=== PATIENT | male | born 1980 | race Caucasian/White ===

== ENCOUNTER 2020-06-11 17:34 | Emergency (ER) | payer BC ==
[2020-06-11] MEDS ORDERED: Diphtheria,Pertussis(Acell),Tetanus Vaccine 0.5 ML Syringe IM ONE (18:04)
--- NOTE | 2020-06-11 18:40 | CR ---
INDICATION: Laceration thumb, hand TECHNIQUE: Hand radiograph 4 views right COMPARISON: None FINDINGS: Bone: No acute fractures or aggressive bone lesions are identified. Joint: The carpal and metacarpal-phalangeal joints are unremarkable in appearance. The interphalangeal joints are normal in appearance. Soft tissue: Unremarkable. No radiopaque foreign bodies are seen. IMPRESSION: 1. No acute osseous injuries or abnormalities are noted. Dictated by: Andrews Nash MD @ 06/11/2020 18:40:06 (Electronically Signed)
--- NOTE | 2020-06-11 19:56 | EDM.PDOC ---
ED HPI GENERAL MEDICAL PROBLEM - General Chief Complaint: Upper Extremity Injury/Pain Stated Complaint: RIGHT HAND LACERATION Time Seen by Provider: 06/11/20 17:44 Source of Information: Reports: Patient History Limitations: Reports: No Limitations - History of Present Illness INITIAL COMMENTS - FREE TEXT/NARRATIVE: HISTORY AND PHYSICAL: History of present illness: Patient is a 39-year-old male who presents to the ED today with concern of right hand laceration that occurred just prior to travel to the ED. Patient states that he was up on a ladder in a tree and was cutting down branches. Patient states that a friend on the ground was stringing up a chain saw. Patient states that he had grabbed the chainsaw and turned it on and it had slipped out of his hand. Patient states as it was falling it clipped the top of his hand and then fell to the ground. Patient states he applied pressure to the area immediately and came to the emergency room. Patient states he is not up-to-date on tetanus. Denies any other symptoms or concerns. Patient denies fever, chills, chest pain, shortness of breath, or cough. Denies headache, neck stiff ness, change in vision, syncope, or near syncope. Denies nausea, vomiting, abdominal pain, diarrhea, constipation, or dysuria. Has not noted any blood in urine or stool. Patient has been eating and drinking appropriately. Review of systems: As per history of present illness and below otherwise all systems reviewed and negative. Past medical history: As per history of present illness and as reviewed below otherwise noncontribu tory. Surgical history: As per history of present illness and as reviewed below otherwise noncontributory. Social history: See social history for further information Family history: As per history of present illness and as reviewed below otherwise noncontributory. Physical exam: General: Patient is alert, oriented, and in no acute distress. Patient sitting comfortably on exam table. HEENT: Atraumatic, normocephalic, pupils equal and reactive bilaterally, negative for conjunctival pallor or scleral icterus, mucous membranes moist, TMs normal bilaterally, throat clear, neck supple, nontender, trachea midline. No drooling or trismus noted. No meningeal signs. No hot potato voice noted. Lungs: Clear to auscultation, breath sounds equal bilaterally, chest nontender. Heart: S1S2, regular rate and rhythm without overt murmur Abdomen: Soft, nondistended, nontender. Negative for masses or hepatosplenomegaly. Negative for costovertebral tenderness. Pelvis: Stable nontender. Genitourinary: Deferred. Rectal: Deferred. Skin: Intact, warm, dry. No lesions or rashes noted. Extremities: There is a 5.5 laceration to the muscle but does not involve the muscle, bone, or tendon of the right lateral dorsal of the hand with hemostasis. There is another 4cm subcutaneous laceration of the right proximal dorsal 1st digit with mild trickling of blood. Patient has full range of motion of all dig its of the right upper extremity without deficit. Radial pulses grossly intact of the right upper extremity with capillary refill less than 2 seconds. Otherwise, atraumatic, negative for cords or calf pain. Neurovascular unremarkable. Neuro: Awake, alert, oriented. Cranial nerves II through XII unremarkable. Cerebellum unremarkable. Motor and sensory unremarkable throughout. Exam nonfocal. Notes: Signs and symptoms that would prompt return to the ED thoroughly discussed with patient. Discussed importance for follow-up with a primary care provider. Voices understanding and is agreeable to plan of care. Denies any further questions or concerns at this time. Diagnostics: Hand XR Therapeutics: tdap, sutures, lidocaine, sterile dressing placed by nursing staff Prescription: None Impression: Hand laceration, right Thumb laceration, right, 1st digit Plan: 1. Keep the area clean and dry. Continue to monitor for signs of infection as discussed. Sutures to be removed in 7-10 days. 2. Tylenol and/or ibuprofen as directed and as needed for pain management and discomfort. 3. Please follow-up with your primary care provider as discussed. Return to the ED as needed and as discussed. Definitive disposition and diagnosis as appropriate pending reevaluation and review of above. Right Hand Pain Score (Numeric/FACES): 5 - Related Data Allergies Allergy/AdvReac Type Severity Reaction Status Date / Time No Known Allergies Allergy Verified 06/11/20 17:45 Home Meds: Home Meds Dextroamphetamine/Amphetamine [Adderall] 30 mg PO DAILY 06/11/20 [History] Past Medical History Psychiatric History: Reports: ADHD Social & Family History - Family History Family Medical History: No Pertinent Family History - Tobacco Use Tobacco Use Status *Q: Former Tobacco User Used Tobacco, but Quit: Yes Month/Year Tobacco Last Used: 2014 - Recreational Drug Use Recreational Drug Use: No Review of Systems - Review of Systems Review Of Systems: Comprehensive ROS is negative, except as noted in HPI. ED EXAM, GENERAL - Physical Exam Exam: See Below (see dictation) ED TRAUMA EXTREMITY PROCEDURES - Laceration/Wound Repair Right Lateral Dorsal Hand Lac/Wound Length In cm: 5.5 Appearance: Muscle, Irregular, Clean Distal NVT: Neuro & Vascular Intact, No Tendon Injury Anesthetic Type: Local Local Anesthesia - Lidocaine (Xylocaine): 1% Plain Local Anesthetic Volume: Other (10cc) Skin Prep: Chlorhexidine (Hibiciens), Providone-Iodine (Betadine), Saline Saline Irrigation (cc's): 300 Exploration/Debridement/Repair: Wound Explored, In a Bloodless Field, Explored to Base, No Foreign Material Found, Wound Margins Revised, Multiple Flaps Aligned Closed With: Sutures Suture Size: 4-0 # of Sutures: 8 Suture Type: Silk, Interrupted Drain Placement: No Sterile Dressing Applied: Nurse Tetanus Status Addressed: Yes Complications: No Right Proximal Dorsal Digit - 1st (Thumb) Lac/Wound Length In cm: 4 Appearance: Subcutaneous, Irregular, Clean Distal NVT: Neuro & Vascular Intact, No Tendon Injury Anesthetic Type: Local Local Anesthesia - Lidocaine (Xylocaine): 1% Plain Local Anesthetic Volume: Other (10cc) Skin Prep: Chlorhexidine (Hibiciens), Providone-Iodine (Betadine), Saline Saline Irrigation (cc's): 300 Exploration/Debridement/Repair: Wound Explored, In a Bloodless Field, Explored to Base, No Foreign Material Found, Wound Margins Revised Closed With: Sutures Suture Size: 4-0 # of Sutures: 6 Suture Type: Silk, Interrupted Drain Placement: No Sterile Dressing Applied: Nurse Tetanus Status Addressed: Yes Complications: No Course - Vital Signs Last Recorded V/S: Last Vital Signs Temp 98 F 06/11/20 17:41 Pulse 81 06/11/20 20:00 Resp 17 06/11/20 20:00 BP 120/66 06/11/20 20:00 Pulse Ox 98 06/11/20 20:00 - Orders/Labs/Meds Meds: Medications Discontinued Medications Generic Name Dose Route Start Last Admin Trade Name Freq PRN Reason Stop Dose Admin Diphtheria/Tetanus/Acell Pertussis 0.5 ml 06/11/20 18:04 06/11/20 18:19 Adacel IM 06/11/20 18:05 0.5 ml .ONCE ONE Administration Lidocaine HCl 10 ml 06/11/20 18:04 06/11/20 18:19 Xylocaine-Mpf 1% INJECT 06/11/20 18:05 10 ml ONETIME ONE Administration Lidocaine HCl 10 ml 06/11/20 18:05 06/11/20 18:19 Xylocaine-Mpf 1% INJECT 06/11/20 18:06 10 ml ONETIME ONE Administration Departure - Departure Time of Disposition: 19:56 Disposition: Home, Self-Care 01 Clinical Impression: Hand laceration Qualifiers: Encounter type: initial encounter Foreign body presence: without foreign body Laterality: right Qualified Code(s): S61.411A - Laceration without foreign body of right hand, initial encounter Thumb laceration Qualifiers: Encounter type: initial encounter Damage to nail status: without damage Foreign body presence: without foreign body Laterality: right Qualified Code(s): S61.011A - Laceration without foreign body of right thumb without damage to nail, initial encounter - Discharge Information Instructions: Laceration Care, Adult, [id number] Referrals: Elizabeth Vera, DIRECT RESPONSE CONSULTANT [Primary Care Provider] - Forms: ED Department Discharge Additional Instructions: The following information is given to patients seen in the emergency department who are being discharged to home. This information is to outline your options for follow-up care. We provide all patients seen in our emergency department with a follow-up referral. The need for follow-up, as well as the timing and circumstances, are variable depending upon the specifics of your emergency department visit. If you don't have a primary care physician on staff, we will provide you with a referral. We always advise you to contact your personal physician following an emergency department visit to inform them of the circumstance of the visit and for follow-up with them and/or the need for any referrals to a consulting specialist. The emergency department will also refer you to a specialist when appropriate. This referral assures that you have the opportunity for follow-up care with a specialist. All of these measure are taken in an effort to provide you with optimal care, which includes your follow-up. Under all circumstances we always encourage you to contact your private physician who remains a resource for coordinating your care. When calling for follow-up care, please make the office aware that this follow-up is from your recent emergency room visit. If for any reason you are refused follow-up, please contact the [facility] Emergency Department at and asked to speak to the emergency department charge nurse. [facility] [address] [place] [address] [facility] [address] [place] [id number] 1. Keep the area clean and dry. Continue to monitor for signs of infection as discussed. Sutures to be removed in 7-10 days. 2. Tylenol and/or ibuprofen as directed and as needed for pain management and discomfort. 3. Please follow-up with your primary care provider as discussed. Return to the ED as needed and as discussed. Sepsis Event Note (ED) - Evaluation Sepsis Screening Result: No Definite Risk - Focused Exam Vital Signs: Vital Signs Temp Pulse Resp BP Pulse Ox 06/11/20 20:00 81 17 120/66 98 06/11/20 18:23 86 20 147/81 H 95 06/11/20 17:41 98 F 96 18 144/58 H 96
== END 2020-06-11 20:17 | disposition home or self-care (01) ==
LOC: MW.ED 17:34
DX: S61.011A Laceration without foreign body of right thumb without damage to nail, initial encounter (principal); S61.411A Laceration without foreign body of right hand, initial encounter; Z87.891 Personal history of nicotine dependence; Z23 Encounter for immunization; F90.9 Attention-deficit hyperactivity disorder, unspecified type; Z79.899 Other long term (current) drug therapy; W29.3XXA Contact with powered garden and outdoor hand tools and machinery, initial encounter
CPT/HCPCS: 12004; 73130; 90471; 90715; 99283; J2001

== ENCOUNTER 2023-09-11 17:05 | Emergency (ER) | payer BC | END 2023-09-11 20:34 | disposition home or self-care (01) | LOC: MW.ED 17:05 | DX: S39.012A Strain of muscle, fascia and tendon of lower back, initial encounter (principal); Q76.49 Other congenital malformations of spine, not associated with scoliosis; Z79.899 Other long term (current) drug therapy; X50.0XXA Overexertion from strenuous movement or load, initial encounter | CPT/HCPCS: 72131; 96372; 99283; J3360 ==

== ENCOUNTER 2024-05-22 00:10 | Emergency (ER) | payer BC ==
[2024-05-22] MEDS: Acetaminophen 500 MG Tab PO ONE (04:49)
[2024-05-22] MEDS: Lidocaine 4% 1 each Patch TOP ONE (04:50)
[2024-05-22] MEDS: Ketorolac 30 MG/ML SDV IM ONE (04:50)
[2024-05-22] MEDS: Dexamethasone 4 MG/ML SDV IM ONE (04:50)
[2024-05-22] MEDS: Orphenadrine 60 MG/2 ML Inj IM ONE (05:45)
[2024-05-22 06:42] LABS: APPEARANCE,URINE CLEAR; BILIRUBIN,URINE NEGATIVE (NEGATIVE); COLOR,URINE YELLOW; GLUCOSE,URINE NEGATIVE (NEGATIVE); KETONES,URINE NEGATIVE (NEGATIVE); LEUKOCYTE ESTERASE,URINE NEGATIVE (NEGATIVE); NITRITE,URINE NEGATIVE (NEGATIVE); OCCULT BLOOD,URINE NEGATIVE (NEGATIVE); PROTEIN,URINE NEGATIVE (NEGATIVE); UROBILINOGEN,URINE 0.2 EU/dL (<2.0)
== END 2024-05-22 07:08 | disposition home or self-care (01) ==
LOC: MW.ED 00:10
DX: S39.012A Strain of muscle, fascia and tendon of lower back, initial encounter (principal); M51.360 Other intervertebral disc degeneration, lumbar region with discogenic back pain only; M62.830 Muscle spasm of back; X50.1XXA Overexertion from prolonged static or awkward postures, initial encounter; Z79.899 Other long term (current) drug therapy
CPT/HCPCS: 72131; 81003; 96372; 99284; A9270; J1100; J1885; J2360